=== PATIENT | female | born 1965 | race Two or more races ===

== ENCOUNTER 2020-12-22 11:26 | Emergency (ER) | payer OTHER ==
[2020-12-22 12:11] VITALS: BMI 22.5
[2020-12-22 12:55] LABS: HEMATOCRIT 42.3 % (32.4-45.2); HEMOGLOBIN 14.5 GM/dL (10.7-15.3); LYMPH % 8.6 % (8-40); MCH 29.6 pg (25.7-33.7); MCHC 34.3 g/dl (32.0-36.0); MEAN CELL VOLUME 86.2 fl (80-96); MEAN PLT VOLUME 8.7 fl (7.5-11.1); NEUT % 86.4 % (42.8-82.8); PLATELET COUNT 170 K/MM3 (134-434); RDW 12.8 % (11.6-15.6); WHITE BLOOD COUNT 4.2 K/mm3 (4.0-10.0)
[2020-12-22 13:19] LABS: POTASSIUM 3.5 mmol/L (3.5-5.1)
[2020-12-22 13:24] LABS: ALBUMIN 3.7 g/dl (3.4-5.0); BLOOD UREA NITROGEN 12.6 mg/dL (7-18); CALCIUM 8.9 mg/dL (8.5-10.1)
[2020-12-22 13:28] LABS: CREATININE 0.8 mg/dL (0.55-1.3)
[2020-12-22 13:29] LABS: BILIRUBIN,TOTAL 0.5 mg/dL (0.2-1); TOT PROT 6.7 g/dl (6.4-8.2)
[2020-12-22] MEDS ORDERED: BAMLANIVIMAB 700 MG, ETESEVIMAB 1,400 MG in SODIUM CHLORIDE 250 ML IVPB ONE (14:00)
[2020-12-22 15:24] VITALS: TEMP 99.1
[2020-12-22 15:57] VITALS: BP 105/76; PULSE 91
== END 2020-12-22 15:58 | disposition home or self-care (01) ==
LOC: JCOVINFU 11:26
DX: U07.1 COVID-19 (principal)
CPT/HCPCS: 36415; 80053; 85025; 99284-25; M0239; Q0239; Q0245